=== PATIENT | male | born 1995 | race Caucasian/White ===

== ENCOUNTER 2021-12-09 08:04 | Emergency (ER) | payer MEDICAID ==
[~2021-12-09] VITALS: Ht 180.3 cm; Wt 100.0 kg
[2021-12-09] MEDS ORDERED: ONDANSETRON HCL 4MG/2ML INJ IV STA (08:29)
[2021-12-09] MEDS ORDERED: KETOROLAC 30MG/ML VIAL IV STA (08:29)
[2021-12-09 09:09] LABS: BASOPHILS % 0.2 % (0.0-2.0); EOSINOPHILS % 0.2 % (0.0-5.0); HEMATOCRIT. 41.1 % (42.0-52.0); HEMOGLOBIN. 14.5 g/dL (14.0-18.0); LYMPHOCYTES % 11.4 % (20.0-50.0); MEAN CORPUSCULAR HEMOGLOBIN 29.9 pg (28.0-32.0); MEAN CORPUSCULAR VOLUME 84.7 fL (80.0-94.0); MEAN PLATELET VOLUME 8.2 fl (7.4-10.4); MONOCYTES % 7.3 % (2.0-8.0); NEUTROPHILS % 80.9 % (40.0-76.0); PLATELET 314 x1000/uL (130-400); RED BLOOD CELL COUNT 4.86 mill/uL (4.7-6.1)
[2021-12-09 09:13] LABS: CHLORIDE 106 mEq/L (98-107)
[2021-12-09 09:15] LABS: CLARITY URINE CLEAR (CLEAR); COLOR URINE YELLOW (YELLOW); KETONES URINE NEGATIVE (NEGATIVE); LEUKOCYTE ESTERASE URINE NEGATIVE (NEGATIVE); NITRITE URINE NEGATIVE (NEGATIVE); OCCULT BLOOD URINE NEGATIVE (NEGATIVE); PROTEIN URINE TRACE (NEGATIVE); SPECIFIC GRAVITY URINE 1.018 (1.005-1.030)
[2021-12-09 09:28] LABS: *AMPHETAMINES SCREEN URINE NEGATIVE (NEGATIVE); *BARBITURATES SCREEN URINE NEGATIVE (NEGATIVE); *BENZODIAZEPINES SCREEN URINE NEGATIVE (NEGATIVE); *COCAINE SCREEN URINE NEGATIVE (NEGATIVE); METHADONE URINE SCREEN NEGATIVE (NEGATIVE); OPIATES URINE SCREEN NEGATIVE (NEGATIVE); PHENCYCLIDINE URINE SCREEN NEGATIVE (NEGATIVE)
[2021-12-09 09:29] LABS: CANNABINOID URINE SCREEN NEGATIVE (NEGATIVE)
[2021-12-09] MEDS ORDERED: IBUP-2029 MT (11:35)
[2021-12-09] MEDS ORDERED: ONDA4TAB5 MT (11:37)
[2021-12-09 12:17] VITALS: BP 176/93
== END 2021-12-09 12:20 | disposition home or self-care (01) ==
LOC: ER 08:04
DX: B34.9 Viral infection, unspecified (principal); I49.9 Cardiac arrhythmia, unspecified; Z20.822 Contact with and (suspected) exposure to COVID-19
CPT/HCPCS: 36415; 70450; 80053; 80305; 81003; 85025; 87426; 93005; 96374; 96375; 99285; J1885; J2405; Z7610

== ENCOUNTER 2025-08-15 22:38 | Emergency (ER) | payer MEDICAID, OTHER ==
[~2025-08-15] VITALS: Ht 175.3 cm; Wt 103.0 kg
[~2025-08-15 22:38] MED LIST: IBUP-1455 MT; ONDA4TAB5 MT
[2025-08-15 22:44] VITALS: O2SAT 97
[2025-08-15] MEDS: ACETAMINOPHEN 325MG TABLET PO ONE (23:00)
[2025-08-15 23:21] LABS: BASOPHILS % 0.7 % (0.0-2.0); EOSINOPHILS % 1.9 % (0.0-5.0); HEMATOCRIT. 42.2 % (42.0-52.0); HEMOGLOBIN. 14.1 g/dL (14.0-18.0); LYMPHOCYTES % 31.2 % (20.0-50.0); MEAN PLATELET VOLUME 7.8 fl (7.4-10.4); MONOCYTES % 8.5 % (2.0-8.0); NEUTROPHILS % 57.7 % (40.0-76.0); PLATELET 391 x1000/uL (130-400); RED BLOOD CELL COUNT 4.90 mill/uL (4.7-6.1); RED CELL DISTRIBUTION WIDTH 12.9 % (11.6-14.6)
[2025-08-15 23:42] LABS: CREATININE 0.8 mg/dL (0.6-1.3); UREA NITROGEN BLOOD 12 mg/dL (9-23)
[2025-08-15 23:43] LABS: ASPARTATE AMINOTRANSFERASE 24 IU/L (<34); TROPONIN I HIGH SENSITIVITY 12 ng/L (3.0-53)
[2025-08-15 23:44] LABS: BILIRUBIN DIRECT 0.1 mg/dL (<=3.0); BILIRUBIN TOTAL 0.4 mg/dL (0.1-1.0); PROTEIN TOTAL 7.7 g/dL (6.0-8.3)
[2025-08-16 01:55] LABS: TROPONIN I HIGH SENSITIVITY 13 ng/L (3.0-53)
[2025-08-16] MEDS ORDERED: ACET-2708 MT (01:57)
[2025-08-16 02:11] VITALS: BP 143/78; PULSE 72; RESP 18; TEMP 36.8; O2SAT 98
== END 2025-08-16 02:14 | disposition home or self-care (01) ==
LOC: ER 22:38
DX: R00.2 Palpitations (principal); I10 Essential (primary) hypertension
CPT/HCPCS: 36415; 71045; 80048; 80076; 80320; 83880; 84484; 85025; 93005; 99285; G0480